=== PATIENT | female | born 1995 | race Caucasian/White ===

== ENCOUNTER 2018-06-03 01:29 | Emergency (ER) | payer MEDICAID ==
[~2018-06-03] VITALS: Ht 157.5 cm; Wt 84.1 kg
[2018-06-03 01:35] VITALS: BP 128/85
--- NOTE | 2018-06-03 01:40 | NUR ---
PT AMBULATED TO BED 8. PT UNABLE TO VOID AT THIS TIME.
--- NOTE | 2018-06-03 01:42 | NUR ---
PATIENT PRESENTS ER WITH C/O LOWER ABDOMINAL/PELVIC PAIN X 1 DAY. PT STATED SHE STARTED SPOTTING, VAG BLEEDING YESTERDAY AND FEELS THAT IT IS NOT A NORMAL PERIOD. SHE STATED THAT SHE DID NOT HAVE A MENSTRAL LAST /APRIL, LMP WAS IN MARCH. PT IS A/O X4. PATIENT STATES PAIN OF 7/10 AT THIS TIME; VSS; PATIENT POSITIONED FOR COMFORT; HOB ELEVATED; BEDRAILS UP X2; BED DOWN. ER MD MADE AWARE OF PT STATUS.
[2018-06-03 02:39] LABS: APPEARANCE,URINE CLOUDY (CLEAR); BILIRUBIN,URINE NEGATIVE (NEGATIVE); BLOOD, URINE 3+ (NEGATIVE); COLOR,URINE RED (YELLOW); LEUKOCYTE ESTERASE ,URINE 1+ (NEGATIVE); NITRITE, URINE NEGATIVE (NEGATIVE); PH,URINE 7.5 (5.0-9.0); UGLUCOSE NEGATIVE (NEGATIVE)
[2018-06-03 02:40] LABS: RBC,URINE TOO NUMEROUS TO COUN /HPF (0-5); WBC,URINE 16-25 (MOD) /HPF (0-5)
[2018-06-03] MEDS ORDERED: LACTULOSE 20 GM/30 ML UDC PO ONE (03:00)
[2018-06-03] MEDS ORDERED: CIPROFLOXACIN 250 MG TAB PO ONE (03:00)
[2018-06-03 03:25] VITALS: BP 128/85
--- NOTE | 2018-06-03 03:25 | NUR ---
Patient discharged with v/s stable. Written and verbal after care instructions given and explained. Patient alert, oriented and verbalized understanding of instructions. Ambulatory with steady gait. All questions addressed prior to discharge. ID band removed. Patient advised to follow up with PMD. Rx of CIPRO, MIRAlAX WAS given. Patient educated on indication of medication including possible reaction and side effects. Opportunity to ask questions provided and answered.
== END 2018-06-03 03:25 | disposition home or self-care (01) ==
LOC: MED 01:29
DX: N39.0 Urinary tract infection, site not specified (principal); K59.00 Constipation, unspecified
CPT/HCPCS: 74018; 81001; 81025; 87086; 99284; Q0092

== ENCOUNTER 2018-07-21 19:12 | Emergency (ER) | payer MEDICAID ==
[~2018-07-21] VITALS: Ht 157.5 cm; Wt 81.2 kg
[2018-07-21 19:20] VITALS: BP 111/75
--- NOTE | 2018-07-21 19:22 | NUR ---
TO LOBBY A/W BED, ANEL REID NOTED
--- NOTE | 2018-07-21 19:30 | NUR ---
PT BIB FAMILY C/O LOWER ABD PAIN. PT STATES SUDDEN ON SET OF INTERMITTENT LOWER ABD PAIN WHEN WALKING, PT STATES SHE TOOK A HOME TEST THAT CAME OUT POSITIVE. PT STATES 0/10 AT THIS TIME. . LMP: 06/02/18. +URINARY FREQUENCY. PT DENIES VAGINAL BLEEDING, DISCHARGE OR FOUL SMELLING ODOR AT THIS TIME. DENIES N/V/D. PT ACTING APPROPRIATLY. PMH: DENIES RX: DENIES
--- NOTE | 2018-07-21 19:31 | NUR ---
Pt taken to bed 11.
[2018-07-21 19:44] LABS: APPEARANCE,URINE CLEAR (CLEAR); BILIRUBIN,URINE NEGATIVE (NEGATIVE); BLOOD, URINE NEGATIVE (NEGATIVE); COLOR,URINE YELLOW (YELLOW); LEUKOCYTE ESTERASE ,URINE NEGATIVE (NEGATIVE); NITRITE, URINE NEGATIVE (NEGATIVE); UGLUCOSE NEGATIVE (NEGATIVE)
--- NOTE | 2018-07-21 20:00 | NUR ---
US AT BEDSIDE.
[2018-07-21 20:01] LABS: BASOPHILS # (AUTO) 0.1 K/uL (0.00-0.22); BASOPHILS % (AUTO) 0.4 % (0.0-2.0); EOSINOPHILS # (AUTO) 0.1 K/uL (0-0.4); EOSINOPHILS % (AUTO) 0.7 % (0.0-4.0); HEMATOCRIT 44.4 % (36-48); HEMOGLOBIN 14.6 g/dL (12.0-16.0); LYMPHOCYTES % (AUTO) 22.8 % (20.5-51.1); MEAN CORPUSCULAR HEMOGLOBIN 29 pg (27-31); MEAN CORPUSCULAR HGB CONC 33 g/dL (33-37); MEAN CORPUSCULAR VOLUME 88.9 fL (80-94); MONOCYTES # (AUTO) 0.8 K/uL (0.8-1.0); MONOCYTES % (AUTO) 5.8 % (1.7-9.3); NEUTROPHILS # (AUTO) 9.2 K/uL (1.8-7.7); NEUTROPHILS % (AUTO) 70.3 % (42.2-75.2); PLATELET COUNT (AUTO) 390 K/uL (140-450); RED CELL DISTRIBUTION WIDTH 13.8 % (11.6-13.7); WHITE BLOOD COUNT (AUTO) 13.2 K/uL (4.8-10.8)
--- NOTE | 2018-07-21 21:42 | NUR ---
DR. OVERTON AT BEDSIDE FOR EVALUATION.
--- NOTE | 2018-07-21 21:55 | NUR ---
Patient discharged with v/s stable. Written and verbal after care instructions given and explained. Patient verbalized understanding. Patient sttaes 0/10 pain at this time. Ambulatory with steady gait with s/o at side. All questions addressed prior to discharge. Advised to follow up with PMD and OBGYN.
[2018-07-21 21:56] VITALS: BP 115/73
== END 2018-07-21 21:55 | disposition home or self-care (01) ==
LOC: MED 19:12
DX: O20.0 Threatened abortion (principal); Z3A.01 Less than 8 weeks gestation of pregnancy
CPT/HCPCS: 36415; 76817; 81003; 81025; 84702; 85025; 86900; 86901; 99284; Q0092

== ENCOUNTER 2018-08-03 18:41 | Emergency (ER) | payer MEDICAID ==
[~2018-08-03] VITALS: Ht 160 cm; Wt 82.6 kg
[2018-08-03 18:56] VITALS: BP 115/66
--- NOTE | 2018-08-03 21:30 | NUR ---
PT GOING FOR U/S
--- NOTE | 2018-08-03 21:30 | NUR ---
PT BROUGHT BACK TO CHAIR. LAB TAKING SPECIMEN
[2018-08-03 21:46] LABS: BASOPHILS % (AUTO) 0.3 % (0.0-2.0); EOSINOPHILS # (AUTO) 0.1 K/uL (0-0.4); EOSINOPHILS % (AUTO) 0.4 % (0.0-4.0); HEMATOCRIT 42.6 % (36-48); HEMOGLOBIN 14.2 g/dL (12.0-16.0); LYMPHOCYTES # (AUTO) 2.9 K/uL (2.5-16.5); LYMPHOCYTES % (AUTO) 21.1 % (20.5-51.1); MEAN CORPUSCULAR HEMOGLOBIN 30 pg (27-31); MEAN CORPUSCULAR HGB CONC 33 g/dL (33-37); MEAN CORPUSCULAR VOLUME 89.2 fL (80-94); MONOCYTES # (AUTO) 0.7 K/uL (0.8-1.0); MONOCYTES % (AUTO) 5.2 % (1.7-9.3); PLATELET COUNT (AUTO) 458 K/uL (140-450); RED BLOOD CELL COUNT(AUTO) 4.78 MIL/uL (4.20-5.40); RED CELL DISTRIBUTION WIDTH 14.1 % (11.6-13.7); WHITE BLOOD COUNT (AUTO) 13.7 K/uL (4.8-10.8)
--- NOTE | 2018-08-03 22:06 | NUR ---
REEVALUATED PT VITALS, VSS. PT AMBULATED BACK TO LOBBY. U/A SPECIMEN WAS COLLECTED AND SENT TO LAB.
[2018-08-03 22:55] LABS: APPEARANCE,URINE CLEAR (CLEAR); BILIRUBIN,URINE NEGATIVE (NEGATIVE); BLOOD, URINE NEGATIVE (NEGATIVE); COLOR,URINE YELLOW (YELLOW); LEUKOCYTE ESTERASE ,URINE NEGATIVE (NEGATIVE); NITRITE, URINE NEGATIVE (NEGATIVE); UGLUCOSE NEGATIVE (NEGATIVE)
--- NOTE | 2018-08-03 23:18 | NUR ---
PATIENT AMBULATED TO ER CHAIR E.
--- NOTE | 2018-08-03 23:25 | NUR ---
PT IS A 23 Y/O FEMALE WHO PRESENTS TO THE ED C/O SUPRAPUBIC PAIN. PER PT IS X7 WEEKS , LMP 06/02/18, KRIS 03/09/19. PT REPORTS 8/10 ACHING SUPRAPUBIC PAIN. PT DENIES CP, SOB, N/V/D. REPORTS PAIN/BURNING ON URINATION. PT AWAKE AND ALERT, RR EVEN/UNLABORED. PT REPOSITIONED FOR COMFORT, BED IN LOWEST POSITION. ER MD DR. PEREZ NOTIFIED. WILL CONTINUE TO MONITOR. MEDHX:DENIES RX:
[2018-08-04] VITALS: BP 137/85
--- NOTE | 2018-08-04 | NUR ---
Patient discharged with v/s stable. Written and verbal after care instructions given and explained. Patient verbalized understanding. Ambulatory with steady gait. All questions addressed prior to discharge. Advised to follow up with PMD.
== END 2018-08-04 | disposition home or self-care (01) ==
LOC: MED 18:41
DX: O26.891 Other specified pregnancy related conditions, first trimester (principal); R10.30 Lower abdominal pain, unspecified; R30.0 Dysuria; Z3A.01 Less than 8 weeks gestation of pregnancy
CPT/HCPCS: 36415; 76817; 81003; 81025; 84702; 85025; 86900; 86901; 99284; Q0092

== ENCOUNTER 2018-09-03 12:05 | Emergency (ER) | payer MEDICAID ==
[~2018-09-03] VITALS: Ht 160 cm; Wt 79.5 kg
[2018-09-03 12:16] VITALS: BP 124/69
--- NOTE | 2018-09-03 12:22 | NUR ---
PATIENT AMBULATED TO BED 4.
--- NOTE | 2018-09-03 12:32 | NUR ---
PATIENT PRESENTS TO ED WITH NECK PAIN RADIATING TO SHOULDERS. DENIES N/V/D. AAOX4 WITH EVEN AND STEADY GAIT; LUNGS CLEAR BL; HR EVEN AND REGULAR; PT DENIES ANY FEVER, CP, SOB, OR COUGH AT THIS TIME; PATIENT STATES PAIN OF 7/10 AT THIS TIME; VSS; PATIENT POSITIONED FOR COMFORT; HOB ELEVATED; BEDRAILS UP X1.
[2018-09-03] MEDS ORDERED: KETOROLAC 30 MG/ML VIAL IM ONE (14:00)
--- NOTE | 2018-09-03 14:44 | NUR ---
Patient discharged with v/s stable. Written and verbal after care instructions given and explained. Patient alert, oriented and verbalized understanding of instructions. Ambulatory with steady gait. All questions addressed prior to discharge. ID band removed. Patient advised to follow up with PMD. Rx of NAPROSYN 500MG AND FLEXERIL 10MG given. Patient educated on indication of medication including possible reaction and side effects. Opportunity to ask questions provided and answered.
[2018-09-03 14:45] VITALS: BP 102/62
== END 2018-09-03 14:44 | disposition home or self-care (01) ==
LOC: MED 12:05
DX: S16.1XXA Strain of muscle, fascia and tendon at neck level, initial encounter (principal); X58.XXXA Exposure to other specified factors, initial encounter; Y93.89 Activity, other specified; Y92.89 Other specified places as the place of occurrence of the external cause; Y99.8 Other external cause status
CPT/HCPCS: 72040; 81025; 96372; 99283; J1885

== ENCOUNTER 2018-09-11 16:02 | Emergency (ER) | payer MEDICAID ==
[~2018-09-11] VITALS: Ht 160 cm; Wt 79.6 kg
[2018-09-11 16:07] VITALS: BP 125/84
--- NOTE | 2018-09-11 16:12 | NUR ---
PT AMBULATED TO LOBBY AT THIS TIME, VSS.
--- NOTE | 2018-09-11 16:45 | NUR ---
PT AMBULATED TO BED 1 AT THIS TIME.
--- NOTE | 2018-09-11 16:50 | NUR ---
23 Y FEMALE BIB SELF C/O NECK PAIN, HEAD ACHE, NON-PRODUCTIVE COUGH, AND WHISTLE IN BOTH EARS. PT REPORTS CONSTANT BURNING PAIN AT 10/10. PT DENIES ANY TRAUMA. PT WAS HERE LAST WEEK AND GIVEN PAIN MEDICINE, BUT PT STATES NO RELIEF. PT REPORTS FATIGUE. DENIES N/V/D OR FEVER. LUNGS CLEAR BILATERALLY. VSS AT THIS TIME. PT ALERT AND ORIENTED. BED IS DOWN, LOCKED, BED RAIL X 1, ERMD TO SEE PT. MEDHX:DENIES RX:DENIES
--- NOTE | 2018-09-11 17:09 | NUR ---
pt amb to restroom
--- NOTE | 2018-09-11 17:58 | NUR ---
DR LARIOS AT BEDSIDE FOR PT EVALUATION
[2018-09-11] MEDS ORDERED: hydrOXYzine HCL 25 MG TAB PO ONE (18:05)
[2018-09-11] MEDS ORDERED: KETOROLAC 60 MG/2 ML VIAL IM ONE (18:05)
--- NOTE | 2018-09-11 18:32 | NUR ---
MEDS RE-ASSESSED PAIN 4/10 AT THIS TIME.
[2018-09-11 18:52] VITALS: BP 107/72
--- NOTE | 2018-09-11 18:52 | NUR ---
Patient discharged with v/s stable. Written and verbal after care instructions given and explained. Patient alert, oriented and verbalized understanding of instructions. Ambulatory with steady gait. All questions addressed prior to discharge. ID band removed. Patient advised to follow up with PMD. Rx of BACLOFEN, PREDNISONE AND AZITHROMYCIN given. Patient educated on indication of medication including possible reaction and side effects. Opportunity to ask questions provided and answered.
== END 2018-09-11 18:50 | disposition home or self-care (01) ==
LOC: MED 16:02
DX: M43.6 Torticollis (principal); J02.9 Acute pharyngitis, unspecified
CPT/HCPCS: 81002; 81025; 96372; 99283; J1885

== ENCOUNTER 2021-10-17 12:34 | Observation (INO) | payer MEDICAID ==
[~2021-10-17] VITALS: Ht 157.5 cm; Wt 93.0 kg
[2021-10-17 13:32] VITALS: BP 101/52
[2021-10-17 13:41] LABS: BILIRUBIN,URINE NEGATIVE (NEGATIVE); BLOOD, URINE NEGATIVE (NEGATIVE); COLOR,URINE YELLOW (YELLOW); LEUKOCYTE ESTERASE ,URINE 3+ (NEGATIVE); NITRITE, URINE NEGATIVE (NEGATIVE); UGLUCOSE NEGATIVE (NEGATIVE)
[2021-10-17 13:42] LABS: APPEARANCE,URINE HAZY (CLEAR)
[2021-10-17 14:08] LABS: CALCIUM OXALATE CRYSTALS,UR None Seen /HPF (None Seen); COARSE GRANULAR CASTS,URINE None Seen /LPF (None Seen); FINE GRANULAR CASTS,URINE None Seen /LPF (None Seen); HYALINE CASTS, URINE None Seen /LPF (None Seen); OTHER CASTS, URINE None Seen /LPF (None Seen); OTHER CRYSTALS,URINE None Seen /HPF (None Seen); RBC,URINE NONE SEEN /HPF (0-5); RED BLOOD CELL CASTS,URINE None Seen /LPF (None Seen); TRICHOMONAS,URINE None Seen /HPF (None Seen); TRIPLE PHOSPHATE CRYSTAL,UR None Seen /HPF (None Seen); URIC ACID CRYSTALS,URINE None Seen /HPF (None Seen); URINE AMORPHOUS URATE None Seen /HPF (None Seen); WAXY CASTS,URINE None Seen /LPF (None Seen); YEAST,URINE None Seen /HPF (None Seen)
[2021-10-17] MEDS ORDERED: cefTRIAXone 1,000 MG in LIDOCAINE MPF 1% 2.1 ML IM ONE (16:45)
[2021-10-17] MEDS ORDERED: PNV91TAB10 PO (16:50)
== END 2021-10-17 18:17 | disposition home or self-care (01) ==
LOC: EDSTATUS 12:42 → MLD 12:53
PROVIDERS: ADMIT Obstetrics & Gynecology; ATTEND Obstetrics & Gynecology
DX: O26.892 Other specified pregnancy related conditions, second trimester (principal); Z20.822 Contact with and (suspected) exposure to COVID-19; R30.0 Dysuria; R50.9 Fever, unspecified; O99.891 Other specified diseases and conditions complicating pregnancy; M54.9 Dorsalgia, unspecified; Z3A.24 24 weeks gestation of pregnancy
CPT/HCPCS: 59025; 81001; 87086; 87426; 96372; G0378; J0696; J2001

== ENCOUNTER 2022-01-29 08:16 | Inpatient (IN) | payer MEDICAID ==
[~2022-01-29] VITALS: Ht 157.5 cm; Wt 92.5 kg
[~2022-01-29 08:16] MED LIST: PNV91TAB10 PO
[2022-01-29] MEDS ORDERED: LACTATED RINGERS 1,000 ML IV SCH (08:45)
[2022-01-29] MEDS ORDERED: MORPHINE SULFATE 5 MG/ML VIAL IVP PRN (08:45)
[2022-01-29] MEDS ORDERED: ONDANSETRON 4 MG/2 ML VIAL IVP PRN (08:45)
[2022-01-29] MEDS ORDERED: OXYTOCIN 20 UNITS in LACTATED RINGERS 1,000 ML IV SCH (08:45)
[2022-01-29 09:38] LABS: BASOPHILS # (AUTO) 0.1 K/uL (0.00-0.22); HEMOGLOBIN 12.1 g/dL (12.0-16.0); NEUTROPHILS # (AUTO) 8.1 K/uL (1.8-7.7); RED CELL DISTRIBUTION WIDTH 17.3 % (11.6-13.7)
[2022-01-29 09:45] LABS: BASOPHILS % (AUTO) 0.6 % (0.0-2.0); EOSINOPHILS % (AUTO) 0.4 % (0.0-4.0); HEMATOCRIT 36.3 % (36-48); LYMPHOCYTES # (AUTO) 2.8 K/uL (2.5-16.5); LYMPHOCYTES % (AUTO) 23.8 % (20.5-51.1); MEAN CORPUSCULAR HEMOGLOBIN 28 pg (27-31); MEAN CORPUSCULAR HGB CONC 33 g/dL (33-37); MONOCYTES # (AUTO) 0.6 K/uL (0.8-1.0); MONOCYTES % (AUTO) 5.5 % (1.7-9.3); NEUTROPHILS % (AUTO) 69.7 % (42.2-75.2); PLATELET COUNT (AUTO) 182 K/uL (140-450); RED BLOOD CELL COUNT(AUTO) 4.33 MIL/uL (4.20-5.40); WHITE BLOOD COUNT (AUTO) 11.6 K/uL (4.8-10.8)
[2022-01-29 09:46] LABS: APPEARANCE,URINE CLEAR (CLEAR); BILIRUBIN,URINE NEGATIVE (NEGATIVE); BLOOD, URINE NEGATIVE (NEGATIVE); COLOR,URINE YELLOW (YELLOW); LEUKOCYTE ESTERASE ,URINE 1+ (NEGATIVE); NITRITE, URINE NEGATIVE (NEGATIVE); PH,URINE 6.5 (5.0-9.0); UGLUCOSE NEGATIVE (NEGATIVE)
[2022-01-29 10:08] LABS: RBC,URINE 0-5 /HPF (0-5)
--- NOTE | 2022-01-29 10:21 | NUR ---
PATIENT HAS BEEN SCREENED AND CATEGORIZED LOW NUTRITION RISK. PATIENT WILL BE SEEN WITHIN 7 DAYS OF ADMISSION. 01/29/22-02/05/[address]
[2022-01-29 10:31] LABS: ALBUMIN 2.5 g/dL (3.4-5.0); ANION GAP 15.2 (8-16); CARBON DIOXIDE 22.6 mmol/L (21-32); CREATININE 0.5 mg/dL (0.6-1.3); POTASSIUM 3.8 mmol/L (3.5-5.1); TOTAL BILIRUBIN 0.4 mg/dL (0.0-1.0)
[2022-01-29 11:09] VITALS: BP 109/58
[2022-01-29] MEDS ORDERED: MISOPROSTOL 25 MCG TAB VG SCH (12:00)
== END 2022-01-29 13:10 | disposition home or self-care (01) | DRG 566 ==
LOC: MLD 08:16
PROVIDERS: ADMIT Obstetrics & Gynecology; ATTEND Obstetrics & Gynecology
DX: O32.1XX0 Maternal care for breech presentation, not applicable or unspecified (principal); O24.419 Gestational diabetes mellitus in pregnancy, unspecified control; Z3A.39 39 weeks gestation of pregnancy; O43.893 Other placental disorders, third trimester; Z20.822 Contact with and (suspected) exposure to COVID-19
CPT/HCPCS: 36415; 76805; 76815; 80053; 81001; 85025; 85610; 85730; 86592; 86886; 86900; 86901; 87086; J2590; J7120; Q0092

== ENCOUNTER 2022-02-01 08:03 | Inpatient (IN) | payer MEDICAID ==
[~2022-02-01] VITALS: Ht 157.5 cm; Wt 92.5 kg
[2022-02-01 09:50] VITALS: BP 99/58
[2022-02-01] MEDS ORDERED: CARBOPROST 250 MCG/ML AMP IM PRN (13:05)
[2022-02-01] MEDS ORDERED: METHYLERGONOVINE 0.2 MG/ML AMP IM PRN (13:05)
[2022-02-01 14:03] LABS: BASOPHILS % (AUTO) 0.5 % (0.0-2.0); EOSINOPHILS % (AUTO) 0.4 % (0.0-4.0); HEMATOCRIT 36.6 % (36-48); HEMOGLOBIN 12.1 g/dL (12.0-16.0); LYMPHOCYTES # (AUTO) 2.2 K/uL (2.5-16.5); LYMPHOCYTES % (AUTO) 22.8 % (20.5-51.1); MEAN CORPUSCULAR HEMOGLOBIN 28 pg (27-31); MEAN CORPUSCULAR HGB CONC 33 g/dL (33-37); MEAN CORPUSCULAR VOLUME 84.6 fL (80-94); MONOCYTES # (AUTO) 0.5 K/uL (0.8-1.0); NEUTROPHILS # (AUTO) 6.7 K/uL (1.8-7.7); NEUTROPHILS % (AUTO) 71.3 % (42.2-75.2); PLATELET COUNT (AUTO) 274 K/uL (140-450); RED BLOOD CELL COUNT(AUTO) 4.33 MIL/uL (4.20-5.40); RED CELL DISTRIBUTION WIDTH 17.6 % (11.6-13.7); WHITE BLOOD COUNT (AUTO) 9.4 K/uL (4.8-10.8)
[2022-02-01] MEDS ORDERED: MISOPROSTOL 25 MCG TAB ONE (14:03)
[2022-02-01 14:50] LABS: ALBUMIN 2.4 g/dL (3.4-5.0); CARBON DIOXIDE 21.9 mmol/L (21-32); CREATININE 0.6 mg/dL (0.6-1.3); POTASSIUM 3.9 mmol/L (3.5-5.1); TOTAL BILIRUBIN 0.4 mg/dL (0.0-1.0)
--- NOTE | 2022-02-01 15:12 | NUR ---
PATIENT HAS BEEN SCREENED AND CATEGORIZED LOW NUTRITION RISK. PATIENT WILL BE SEEN WITHIN 7 DAYS OF ADMISSION. 02/08/[address]
[2022-02-01] MEDS ORDERED: MISOPROSTOL 25 MCG TAB VG SCH (18:00)
[2022-02-01] MEDS: LACTATED RINGERS 1,000 ML IV SCH ×2 (21:05→22:44)
[2022-02-02] MEDS ORDERED: OXYTOCIN 20 UNITS/LR PREMIX 1,000 ML IV ONE (14:04)
[2022-02-02] MEDS ORDERED: ROPIVACAINE 0.2%/NS PREMIX 200 ML EPI ONE (14:23)
[2022-02-02] MEDS ORDERED: ROPIVACAINE 0.2%/NS PREMIX 100 ML EPI SCH (14:40)
[2022-02-02] MEDS: LACTATED RINGERS 1,000 ML IV SCH ×2 (16:00→17:08)
[2022-02-02] MEDS ORDERED: metFORMIN 500 MG TAB PO SCH (21:00)
[2022-02-02] MEDS ORDERED: OXYTOCIN 10 UNITS/ML VIAL IM PRN (22:20)
[2022-02-02] MEDS ORDERED: oxyCODONE/APAP 5/325 MG 1 TAB TAB PO PRN (22:20)
[2022-02-02] MEDS ORDERED: HYDROcodone/APAP 5/325 MG 1 TAB TAB PO PRN (22:20)
[2022-02-02] MEDS ORDERED: BENZOCAINE/MENTHOL 20%-0.5% 60 GM CAN TP PRN (22:20)
[2022-02-02] MEDS ORDERED: IBUPROFEN 600 MG TAB PO PRN (22:20)
[2022-02-02] MEDS ORDERED: METHYLERGONOVINE 0.2 MG/ML AMP IM PRN (22:20)
[2022-02-03 07:29] LABS: HEMOGLOBIN 11.2 g/dL (12.0-16.0)
[2022-02-03] MEDS ORDERED: bisacodyL 5 MG TABEC PO SCH (21:00)
== END 2022-02-04 13:25 | disposition home or self-care (01) | DRG 560 ==
LOC: MLD 08:03 → OBSVTOIN 08:03 → MFCC 02-03 03:18
PROVIDERS: ADMIT Obstetrics & Gynecology; ATTEND Obstetrics & Gynecology
PROC: 10E0XZZ Delivery of Products of Conception, External Approach (ICD-10-PCS; principal; 2022-02-02)
PROC: 3E0DXGC Introduction of Other Therapeutic Substance into Mouth and Pharynx, External Approach (ICD-10-PCS; 2022-02-02)
PROC: 0HQ9XZZ Repair Perineum Skin, External Approach (ICD-10-PCS; 2022-02-02)
PROC: 3E0R3BZ Introduction of Anesthetic Agent into Spinal Canal, Percutaneous Approach (ICD-10-PCS; 2022-02-02)
PROC: 00HU33Z Insertion of Infusion Device into Spinal Canal, Percutaneous Approach (ICD-10-PCS; 2022-02-02)
DX: O32.0XX0 Maternal care for unstable lie, not applicable or unspecified (principal); Z37.0 Single live birth; O24.429 Gestational diabetes mellitus in childbirth, unspecified control; O70.0 First degree perineal laceration during delivery; O77.0 Labor and delivery complicated by meconium in amniotic fluid; Z20.822 Contact with and (suspected) exposure to COVID-19; Z3A.39 39 weeks gestation of pregnancy; O90.81 Anemia of the puerperium
CPT/HCPCS: 36415; 51702; 59200; 59409; 76815; 80053; 82947; 82948; 85018; 85025; 86592; 86886; 86900; 86901; J2590; J2795; J7120; Q0092; Q0163